=== PATIENT | male | born 2000 | race Caucasian/White ===

== ENCOUNTER 2020-09-30 02:29 | Emergency (ER) | payer OTHER ==
[~2020-09-30] VITALS: Ht 175.3 cm; Wt 74.8 kg
[2020-09-30 02:29] VITALS: BP 132/68
--- NOTE | 2020-09-30 02:29 | NUR ---
PT BIB [facility], PREBOOK. TAKEN TO CHAIR
--- NOTE | 2020-09-30 03:00 | NUR ---
d/c with [facility]. d/c to [facility] Officer Yisel #[id number]
== END 2020-09-30 03:00 ==
LOC: MED 02:29
DX: Z02.89 Encounter for other administrative examinations (principal); V89.2XXA Person injured in unspecified motor-vehicle accident, traffic, initial encounter; Y93.89 Activity, other specified; Y92.410 Unspecified street and highway as the place of occurrence of the external cause; Y99.8 Other external cause status
CPT/HCPCS: 99283